=== PATIENT | female | born 1995 | race American Indian/Alaskan Native ===

== ENCOUNTER 2017-10-17 17:39 | Emergency (ER) | payer SELFPAY ==
--- NOTE | 2017-10-17 18:39 | Emergency Department Report ---
ED Female HPI - General Chief complaint: Headache Stated complaint: DIZZINESS Time Seen by Provider: 10/17/17 18:23 Source: patient Mode of arrival: Ambulatory Limitations: No Limitations - History of Present Illness Initial comments: Ms Mckeon is a 22 year-old woman without reported PMH who presents with flank pain. Has been having dysuria and left flank pain for 2-3 days. No blood in urine. Has gradually worsened. Today now has headache and nausea as well. Has episode where she went to stand up, became light headed. Did not pass out. Normal urination. has been having vaginal bleeding for about 4 months now. No vaginal dc. MD Complaint: dysuria -: Gradual Location: other (left flank) Radiation: suprapubic Severity: moderate Consistency: constant Improves with: none Worsens with: urination Are you Now?: No Associated Symptoms: vaginal bleeding, nausea/vomiting, headaches - Related Data Allergies Allergy/AdvReac Type Severity Reaction Status Date / Time shellfish derived Allergy Unknown Verified 10/17/17 17:50 ED Review of Systems ROS: Stated complaint: DIZZINESS Other details as noted in HPI Comment: All other systems reviewed and negative ED Past Medical Hx - Past Medical History Hx Hypertension: Yes (controlled) - Surgical History Additional Surgical History: 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 Absent: respiratory distress, wheezes, rales - Cardiovascular Cardiovascular Exam: Present: regular rate, normal rhythm. Absent: systolic murmur, diastolic murmur, rubs, gallop - GI/Abdominal GI/Abdominal exam: Present: soft, tenderness, other (suprapubic ttp). Absent: distended, guarding, rebound - Rectal Rectal exam: Present: deferred - Extremities Exam Extremities exam: Present: normal inspection. Absent: tenderness - Back Exam Back exam: Present: normal inspection, CVA tenderness (L). Absent: CVA tenderness (R), vertebral tenderness - Neurological Exam Neurological exam: Present: alert, oriented X3 - Psychiatric Psychiatric exam: Present: normal affect, normal mood - Skin Skin exam: Present: warm, dry, intact, normal color. Absent: rash ED Course Vital Signs 10/17/17 10/17/17 10/17/17 17:41 19:14 19:59 Temperature 98.7 F 98.7 F Pulse Rate 98 H 96 H Respiratory 18 18 17 Rate Blood Pressure 116/77 Blood Pressure 129/62 [Left] O2 Sat by Pulse 100 100 Oximetry ED Medical Decision Making - Lab Data Result diagrams: 10/17/17 18:25 10/17/17 18:33 Lab Results 10/17/17 10/17/17 10/17/17 Range/Units 18:19 18:25 18:33 WBC 18.0 H (4.5-11.0) K/mm3 RBC 4.01 (3.65-5.03) M/mm3 Hgb 12.2 (10.1-14.3) gm/dl Hct 36.5 (30.3-42.9) % MCV 91 (79-97) fl MCH 31 (28-32) pg MCHC 34 (30-34) % RDW 13.3 (13.2-15.2) % Plt Count 440 (140-440) K/mm3 Sodium 136 L (137-145) mmol/L Potassium 3.5 L (3.6-5.0) mmol/L Chloride 97.2 L (98-107) mmol/L Carbon Dioxide 27 (22-30) mmol/L Anion Gap 15 mmol/L BUN 7 (7-17) mg/dL Creatinine 0.7 (0.7-1.2) mg/dL Estimated GFR > 60 ml/min BUN/Creatinine Ratio 10 % Glucose 97 (65-100) mg/dL Calcium 9.2 (8.4-10.2) mg/dL Total Bilirubin 0.20 (0.1-1.2) mg/dL AST 15 (5-40) units/L ALT 13 (7-56) units/L Alkaline Phosphatase 61 (35-129) units/L Total Protein 7.8 (6.3-8.2) g/dL Albumin 4.2 (3.9-5) g/dL Albumin/Globulin Ratio 1.2 % Urine Color Yellow (Yellow) Urine Turbidity Clear (Clear) Urine pH 8.0 H (5.0-7.0) Ur Specific [place] 1.018 (1.003-1.030) Urine Protein <15 mg/dl (Negative) mg/dL Urine Glucose (UA) Neg (Negative) mg/dL Urine Ketones Neg (Negative) mg/dL Urine Blood Sm (Negative) Urine Nitrite Neg (Negative) Ur Reducing Substances Not Reportable Urine Bilirubin Neg (Negative) Urine Ictotest Not Reportable Urine Urobilinogen < 2.0 (<2.0) mg/dL Ur Leukocyte Esterase Sm (Negative) Urine WBC (Auto) 10.0 H (0.0-6.0) /HPF Urine RBC (Auto) 4.0 (0.0-6.0) /HPF U Epithel Cells (Auto) 2.0 (0-13.0) /HPF Urine HCG, Qual Negative (Negative) - Medical Decision Making Ms Mckeon is a 22 year-old woman who presents with flank pain, dysuria. No fever. No vomiting. Endorses NOGUERA. Exam with suprapubic and left CVA ttp. Suspect pyelo vs UTI vs constipation vs msk pain. No vaginal complaints. HCG negative. WBC 18. UA with evidence of UTI. Lytes wnl. Will treat for pyelonephritis with keflex 500mg TID. Given NOGUERA cocktail here as well. Refused IV, encourage PO fluids. Will send urine culture. Given care instructions, return precautions. safe for dc to home with keflex, naproxen. pcp follow-up as needed. Critical care attestation.: If time is entered above; I have spent that time in minutes in the direct care of this critically ill patient, excluding procedure time. ED Disposition Clinical Impression: Pyelonephritis Disposition: DC-01 TO HOME OR SELFCARE Is pt being admited?: No Condition: Stable Instructions: Acute Pyelonephritis (ED) Referrals: PRIMARY CARE, [Primary Care Provider] - 3-5 Days
[2017-10-17] MEDS ORDERED: MOTRIN PO ONE (18:41)
[2017-10-17] MEDS ORDERED: ZOFRAN ODT PO ONE (18:41)
[2017-10-17 18:45] LABS: HCG Qualitative,Urine Negative (Negative)
[2017-10-17 18:46] LABS: Hematocrit 36.5 % (30.3-42.9); Hemoglobin 12.2 gm/dl (10.1-14.3); Mean Corpuscular HGB Conc 34 % (30-34); Mean Corpuscular Hemoglobin 31 pg (28-32); Mean Corpuscular Volume 91 fl (79-97); Platelet Count 440 K/mm3 (140-440); Red Blood Count 4.01 M/mm3 (3.65-5.03); Red Cell Distribution Width 13.3 % (13.2-15.2)
[2017-10-17 18:47] LABS: Bilirubin,Urine NEG (Negative); Blood,Urine SM (Negative); Color,Urine Yellow (Yellow); Protein,Urine <15 mg/dL mg/dL (Negative); Urobilinogen,Urine < 2.0 mg/dL (<2.0)
[2017-10-17 19:00] LABS: Alanine Aminotransferase 13 units/L (7-56); Albumin 4.2 g/dL (3.9-5); BUN/Creatinine Ratio 10; Blood Urea Nitrogen 7 mg/dL (7-17); Calcium 9.2 mg/dL (8.4-10.2); Hemolysis Index 3
[2017-10-17] MEDS ORDERED: KEFLEX PO ONE (19:09)
[2017-10-17] MEDS ORDERED: REGLAN PO ONE (19:48)
[2017-10-17] MEDS ORDERED: BENADRYL PO ONE (19:48)
[2017-10-17 20:00] VITALS: BP 129/62
== END 2017-10-17 21:20 | disposition home or self-care (01) ==
LOC: ED 17:39
DX: N12 Tubulo-interstitial nephritis, not specified as acute or chronic (principal); I10 Essential (primary) hypertension; Z91.013 Allergy to seafood
CPT/HCPCS: 36415; 80053; 81001; 81025; 85027; 93005; 93010; 99283; Q0162